=== PATIENT | female | born 1990 | race Caucasian/White ===

== ENCOUNTER → 2016-04-08 | Outpatient (CLI) | payer OTHER ==
--- NOTE | 2016-04-08 10:37 | US ---
EXAMINATION TYPE: US pelvic complete plus Doppler's. DATE OF EXAM: 04/08/2016 10:18 AM COMPARISON: NONE CLINICAL HISTORY: 25-year-old female with N92.6 Irregular Menses. Patient stated had menses last January 2016, and February 2016 Date of LMP: 03/11/2016 TECHNIQUE: Multiple transabdominal sonographic images of the pelvis were obtained. Color Doppler and spectral waveform analysis of the ovarian arteries and veins. FINDINGS: Uterus: Anteverted measuring 8.0 x 4.9 x 3.6 cm. A couple cervical nabothian cysts are present measu ring up to 4 mm. Endometrial Stripe: 9.6mm, within normal limits. Right Ovary: 4.4 x 2.6 x 2.8 cm for a volume of 17.3 mL. There is follicular change with a dominant thick-walled cystic structure measuring 1.8 cm, likely a corpus luteum. There is satisfactory arteria l and venous flow. Left Ovary: 3.8 x 2.1 x 1.8 cm for a volume of 7.4 mL. There is follicular change and satisfactory a rterial and venous flow. Small amount of free fluid is noted adjacent to the right ovary measuring 2.8 cm. No cul-de-sac free fluid are otherwise any adnexal abnormality seen. IMPRESSION: 1. Follicular change in the ovaries and likely a 1.8 cm right-sided corpus luteum. 2. No sonographic evidence for ovarian torsion. 3. Small amount of left adnexal free fluid is probably physiologic.
== END | disposition home or self-care (01) ==
LOC: RADUSWWP 09:35
PROVIDERS: ATTEND Obstetrics & Gynecology
DX: N92.6 Irregular menstruation, unspecified (principal)
CPT/HCPCS: 36415; 76856; 84439; 84443

== ENCOUNTER → 2016-06-12 | Outpatient (CLI) | payer OTHER ==
[2016-06-12 15:36] LABS: CH 30.3; CHCM 35.4; HCT 38.4 % (34.0-46.0); HDW 2.41; HGB 13.3 gm/dL (11.4-16.0); MCH 29.8 pg (25.0-35.0); MCHC 34.6 g/dL (31.0-37.0); MCV 86.1 fL (80.0-100.0); Mean Platelet Volume 7.4; RBC 4.46 m/uL (3.80-5.40); RDW 12.4 % (11.5-15.5); WBC 9.5 k/uL (3.8-10.6)
[2016-06-12 15:43] LABS: Glucose 76 mg/dL (74-99); Non-African American GFR(MDRD) >60 (>60 ml/min/1.73 sqM)
--- NOTE | 2016-06-12 16:00 | US ---
EXAMINATION TYPE: US OB <= 14 wk fetus DATE OF EXAM: 06/12/2016 3:23 PM COMPARISON: NONE CLINICAL HISTORY: [id number] Confirm dates and viability. Confirm dates, cramping EXAM PERFORMED: Transabdominal (TA) EXAM MEASUREMENTS: GESTATIONAL AGE / DATING Physician Established: not established Dates by LMP: (12 weeks/5 days) EDC: 12/20/16 Dates by First Scan: no prior Dates by Current Scan for: (13 weeks/1 days) EDC: 12/17/16 MATERNAL ANATOMY Uterus: 15.0 x 6.8 x 8.9cm Right Ovary: 3.7 x 1.8 x 1.6cm Left Ovary: 3.1 x 2.0 x 1.6cm Post CDS / Adnexa: wnl Presence of free fluid: no Presence of corpus luteal cyst: yes, hypoechoic area right ovary = 1.7 x 1.3 x 1.2cm GESTATION / SURVEY CRL: 6.8cm (13 weeks/1 days) Yolk Sac (normal less than 6mm): not seen Heart Rate: 162 bpm Rhythm: Normal IUP: Viable IUP Nuchal Translucency 10-14wks (normal less than 3mm): 0.2cm Date of LMP: 0.03/15/16 Beta HcG (if available): unavailable Single viable IUP 13wks/1day with BELLA of 12/17/16. Corpus luteum right ovary IMPRESSION: 1. Single intrauterine gestation estimated at 13 weeks 1 day gestation. Cardiac activity measures 162 bpm.
[2016-06-12 16:12] LABS: Hepatitis B Surface Ag Index 0.05
[2016-06-13 07:49] LABS: HIV-1/HIV-2 Ab Screen NONREAC (NON REAC)
== END | disposition home or self-care (01) ==
LOC: RADUSWWP 14:55
PROVIDERS: ATTEND Obstetrics & Gynecology
DX: Z36 Encounter for antenatal screening of mother (principal); Z34.01 Encounter for supervision of normal first pregnancy, first trimester; Z3A.13 13 weeks gestation of pregnancy
CPT/HCPCS: 76801; 76813; 82565; 82947; 85027; 86762; 86780; 86850; 86900; 86901; 87340; 87389

== ENCOUNTER → 2016-09-04 | Outpatient (CLI) | payer OTHER ==
[2016-09-04 09:20] LABS: CH 31.4; CHCM 33.4; HCT 39.7 % (34.0-46.0); HDW 2.39; HGB 12.5 gm/dL (11.4-16.0); MCH 29.8 pg (25.0-35.0); MCHC 31.5 g/dL (31.0-37.0); MCV 94.6 fL (80.0-100.0); Mean Platelet Volume 8.1; RBC 4.19 m/uL (3.80-5.40); RDW 13.5 % (11.5-15.5); WBC 8.3 k/uL (3.8-10.6)
== END | disposition home or self-care (01) ==
LOC: LABWHC1 08:03
PROVIDERS: ATTEND Obstetrics & Gynecology
DX: Z34.02 Encounter for supervision of normal first pregnancy, second trimester (principal)
CPT/HCPCS: 36415; 82950; 85027

== ENCOUNTER → 2016-09-13 | Outpatient (CLI) | payer OTHER ==
[2016-09-13 12:13] LABS: Glucose 3 Hour, Gest 96 mg/dL
== END | disposition home or self-care (01) ==
LOC: LABWHC1 07:34
PROVIDERS: ATTEND Obstetrics & Gynecology
DX: O99.810 Abnormal glucose complicating pregnancy (principal); Z3A.00 Weeks of gestation of pregnancy not specified
CPT/HCPCS: 36415; 82951; 82952

== ENCOUNTER → 2017-05-12 | Outpatient (CLI) | payer OTHER ==
[2017-05-12 14:39] LABS: Basophils % (A) 0 %; Eosinophils % (A) 1 %; HCT 42.6 % (34.0-46.0); HGB 14.2 gm/dL (11.4-16.0); Lymphocytes # (A) 2.6 k/uL (1.0-4.8); Lymphocytes % (A) 42 %; MCH 29.2 pg (25.0-35.0); MCHC 33.3 g/dL (31.0-37.0); MCV 87.5 fL (80.0-100.0); Mean Platelet Volume 7.4; Monocytes # (A) 0.3 k/uL (0-1.0); Monocytes % (A) 5 %; Neutrophils # (A) 3.2 k/uL (1.3-7.7); Neutrophils % (A) 51 %; Platelet Count 300 k/uL (150-450); RBC 4.86 m/uL (3.80-5.40); RDW 11.5 % (11.5-15.5); WBC 6.3 k/uL (3.8-10.6)
== END | disposition home or self-care (01) ==
LOC: LABWHC1 14:08
PROVIDERS: ATTEND Obstetrics & Gynecology
DX: Z01.812 Encounter for preprocedural laboratory examination (principal)
CPT/HCPCS: 36415; 85025

== ENCOUNTER 2017-05-23 06:30 | Day surgery (SDC) | payer OTHER ==
[2017-05-21 12:05] VITALS: BMI 24.0
--- NOTE | 2017-05-22 19:11 | P.HPOB ---
History of Present Illness H&P Date: 05/22/17 Chief Complaint: NNAMDI-3 This is a 26-year-old female 1 para 1 who presents for colposcopy with loop electrocautery excision procedure due to NNAMDI-3 on colposcopy. Patient had a Pap smear showing atypical squamous cells of undetermined significance with positive high risk HPV in December 2016. She underwent colposcopy in January 2017 and biopsy did show NNAMDI 3. Endocervical curettings were benign. Obstetrical history: . History of 1 vaginal delivery. Gynecologic history: No history of sexually transmitted diseases. She does have a history of an abnormal Pap smear in 2012 with HPV and low-grade noted at that time. She did have colposcopy and cryocautery at that time. Review of Systems Constitutional: Denies chills, Denies fever Eyes: denies blurred vision, denies pain Ears, nose, mouth and throat: Denies headache, Denies sore throat Cardiovascular: Denies chest pain, Denies shortness of breath Respiratory: Denies cough Gastrointestinal: Denies abdominal pain, Denies diarrhea, Denies nausea, Denies vomiting Genitourinary: Denies dysuria, Denies hematuria Musculoskeletal: Denies myalgias Integumentary: Denies pruritus, Denies rash Neurological: Denies numbness, Denies weakness Psychiatric: Denies anxiety, Denies depression Past Medical History Past Medical History: No Reported History Additional Past Medical History / Comment(s): states "has precancerous cells shown on pap smear" History of Any Multi-Drug Resistant Organisms: None Reported Additional Past Surgical History / Comment(s): jaw fx -jaw wired Past Anesthesia/Blood Transfusion Reactions: No Reported Reaction Past Psychological History: No Psychological Hx Reported Smoking Status: Never smoker Past Alcohol Use History: Occasional Past Drug Use History: None Reported - Past Family History Father Family Medical History: No Reported History Medications and Allergies Home Medications Medication Instructions Recorded Confirmed Type Pnv,Calcium 72/Iron/Folic Acid 1 tab PO DAILY 12/01/16 05/21/17 History [ Plus Tablet] Acetaminophen Tab [Tylenol] 650 mg PO Q4HR PRN 03/17/17 05/21/17 History Allergies Allergy/AdvReac Type Severity Reaction Status Date / Time No Known Allergies Allergy Verified 05/21/17 12:00 Exam Osteopathic Statement: *. No significant issues noted on an osteopathic structural exam other than those noted in the History and Physical/Consult. HEENT: Within normal limits Heart: Regular rate and rhythm Lungs: Clear to auscultation bilaterally Abdomen: Soft, nontender Pelvic exam: Uterus is small, anteverted, with no adnexal masses or tenderness palpated. Extremities: Negative Homans Assessment and Plan (1) NNAMDI III (cervical intraepithelial neoplasia III) Status: Acute Code(s): D06.9 - CARCINOMA IN SITU OF CERVIX, UNSPECIFIED SNOMED Code(s): 43192123 Plan: Proceed with colposcopy with loop electrocautery excision procedure. I have discussed the risks, benefits, and alternative therapies for the above- mentioned procedure and for both sedation/anesthesia as well as necessary blood products administration, if indicated, as they pertain to this patient. The patient has indicated her understanding and acceptance of the risks and procedures discussed.
[~2017-05-23 06:30] MED LIST: DEXAMETHASONE SOD PHOSPHATE 10 MG/ML 1 ML VIAL IV ONE; HYDROmorphone 0.5 MG/0.5 ML SYRINGE IVP PRN; LACTATED RINGERS 1,000 ML IV SCH; LIDOCAINE 1% 20 ML VIAL (10MG/ML) FOR IV START INTRADERMA PRN; MIDAZOLAM 2 MG/2 ML VIAL IV PRN; MORPHINE SULFATE 2 MG/ML SYRINGE IV PRN; ONDANSETRON 4 MG/2 ML VIAL IVP ONE; Pre Op ABX Message 1 EACH MISC MISCELLANE ONE; SCOPOLAMINE 1.5MG/72HR PATCH TRANSDERM ONE
[2017-05-23] MEDS ORDERED: BUPIVACAINE (PF) 0.5% 30 ML VIAL MISCELLANE ONE ×2 (07:26)
[2017-05-23] MEDS ORDERED: LIDOCAINE 1%-EPI 1:100,000 20 ML VIAL SUBMUCOSAL ONE ×2 (07:26)
[2017-05-23] MEDS ORDERED: FERRIC SUBSULFATE (MONSELS) JAR TOPICAL ONE (07:29)
[2017-05-23] MEDS ORDERED: ACETIC ACID 15 DROPS/ML DROPS MISCELLANE ONE (07:29)
[2017-05-23] MEDS ORDERED: IODINE/POTASS IOD (LUGOLS) BTL TOPICAL ONE (07:29)
[2017-05-23] MEDS ORDERED: LIDOCAINE 1% INJ 10MG/ML (20 ML MDV) ONE (07:30)
[2017-05-23] MEDS ORDERED: fentaNYL (PF) 50 MCG/ML 2 ML AMP ONE (07:30)
[2017-05-23] MEDS ORDERED: PROPOFOL 10 MG/ML 20 ML VIAL IV ONE (07:30)
--- NOTE | 2017-05-23 07:59 | P.OP ---
Date of Procedure: 05/23/17 Preoperative Diagnosis: NNAMDI-3 Postoperative Diagnosis: Same Procedure(s) Performed: Colposcopy with loop electrocautery excision procedure Anesthesia: other (LMA general) Surgeon: Bisi Cunha Estimated Blood Loss (ml): 5 Pathology: other (Ectocervix with 12 o'clock position marked with a white suture and 6 o'clock position marked with a black suture) Condition: stable Disposition: same day Indications for Procedure: This is a 26-year-old female 1 para 1 who presents for colposcopy with loop electrocautery excision procedure due to NNAMDI-3 on colposcopy. Patient had a Pap smear showing atypical squamous cells of undetermined significance with positive high risk HPV in December 2016. She underwent colposcopy in January 2017 and biopsy did show NNAMDI 3. Endocervical curettings were benign. Operative Findings: Acetowhite areas and coarse mosaicism were seen on the 12:00 border. Transition zone was seen entirely. Description of Procedure: The patient was taken to the operating room where she is placed in the dorsal lithotomy position. She is prepped and draped in the normal sterile fashion. Bladder is drained with a catheter and then removed. Examination is performed under anesthesia. Uterus is found to be small, anteverted, with no adnexal masses palpated. Next a coated bivalve speculum was placed in the patient's vagina. Next the cervix was swabbed with 5% acetic acid. The above noted findings are made. Next the cervix is swabbed with Lugol solution. No further findings were noted. Next the cervix was injected with a 50-50 mixture of half percent Marcaine and 1% lidocaine with epinephrine. The cervix was then injected using a spinal needle. Approximately 8 mL were used. Next a large cutting loop was used to swipe from left to right using 35 W cutting power along the top border. Next the same procedure was used to swipe from left to right along the bottom border. Specimens were labeled with the 12:00 piece marked with a white suture in the 6:00 piece marked with a black suture. Next ball-tipped cautery was used to cauterize the bed left behind. Excellent hemostasis was noted. Next Monsel solution was applied. All instruments are removed from the vagina. All sponge counts are correct. The patient is then taken to recovery room in stable condition.
[2017-05-23 08:18] VITALS: TEMP 97.5
[2017-05-23 09:04] VITALS: RESP 18
[2017-05-23 09:21] VITALS: BP 110/78; PULSE 77
== END 2017-05-23 09:47 | disposition home or self-care (01) ==
LOC: OR 06:30
PROVIDERS: ATTEND Obstetrics & Gynecology
DX: N87.1 Moderate cervical dysplasia (principal); Z79.899 Other long term (current) drug therapy
CPT/HCPCS: 81025; 88307; 57460; J1100; J2405; J2001; J3010; J2704